=== PATIENT | female | born 1995 | race Caucasian/White ===

== ENCOUNTER → 2016-08-31 | Outpatient (CLI) | payer OTHER ==
[2016-08-31 20:09] LABS: BASO % 0.3 % (0.0-1.0); EOS # 0.1 K/mm3 (0.0-0.50); EOS % 0.9 % (0.0-3.0); LARGE UNSTAINED CELL # 0.1 K/mm3 (0.0-0.4); LARGE UNSTAINED CELL % 1.2 % (0.0-4.0); LYMPH % 23.3 % (24.0-44.0); MEAN CORPUSCULAR HEMOGLOBIN 27.1 pg (27.0-33.0); MEAN CORPUSCULAR HGB CONC 32.3 g/dl (32.0-36.5); MEAN CORPUSCULAR VOLUME 84.1 fl (80.0-96.0); MONO # 0.4 K/mm3 (0.0-0.8); MONO % 4.2 % (0.0-5.0); NEUTROPHILS # 5.9 K/mm3 (1.8-7.7); NEUTROPHILS % 70.2 % (36.0-66.0); PLATELET COUNT, AUTOMATED 288 k/mm3 (150-450); WHITE BLOOD COUNT 8.4 K/mm3 (4.0-10.0)
[2016-09-01 14:26] LABS: HIV SCRN NEGATIVE (NEGATIVE)
[2016-09-01 14:27] LABS: CONTROL LINE INT CTR LINE PRESENT; HIV SCRN1 NEGATIVE (NEGATIVE)
[2016-09-02 09:30] LABS: HBsAg Prenatal NEGATIVE (NEGATIVE)
== END ==
LOC: M WUC 15:40
PROVIDERS: ATTEND Specialist
DX: Z34.81 Encounter for supervision of other normal pregnancy, first trimester (principal)

== ENCOUNTER → 2016-11-17 | Outpatient (CLI) | payer OTHER ==
--- NOTE | 2016-11-18 04:48 | REP ---
Clinical: Anatomical evaluation. Comparison: None . Findings: Examination demonstrates a single live intrauterine in breech presentation. motion is identified by technologist. Placenta is noted anteriorly and grade zero without evidence for placenta previa or abruption. Amniotic fluid volume is normal. Cervix measures 4.0 cm in length and appears closed. No evidence for nuchal cord. Gestational age by LMP 18 weeks 5 days with CURT 04/15/2017 . Gestational age by current measurements 20 weeks 2 days with CURT 04/04/2017 . FHR equals 141 beats per minute. BPD 4.6 cm 19 weeks 6 days HC 17.7 cm 20 weeks 1 day AC 16.0 cm 21 weeks 1 day FL 3.2 cm 20 weeks 0 days HL 3.1 cm 20 weeks 3 days HC/AC ratio 1.10 Estimated weight 360 grams ( 54th percentile). Anatomical assessment demonstrates normal structures including cranium, choroid plexus, cavum, cerebellum/posterior fossa, facial features, lungs, four-chamber heart/ventricular outflow tracts, diaphragm, stomach, cord insertion/three-vessel cord, kidneys/bladder, spine, and extremities. Impression: Single live intrauterine in breech presentation demonstrating appropriate interval growth. Anatomical assessment is complete and normal. Cisterna magna measures 9.6 mm which is upper limits of normal. Signed by Tray Laboy MD 11/18/2016 04:39 A
== END ==
LOC: M RAD 16:06
PROVIDERS: ATTEND Obstetrics & Gynecology
DX: Z36 Encounter for antenatal screening of mother (principal)

== ENCOUNTER → 2017-01-19 | Outpatient (CLI) | payer OTHER ==
[~2017-01-19] MED LIST: IBUP-1114 PO; PREN1PAK2 PO; TUMS500C PO; TYLE325T5 PO
[2017-01-19 14:08] LABS: MEAN CORPUSCULAR HEMOGLOBIN 25.4 pg (27.0-33.0); MEAN CORPUSCULAR HGB CONC 31.4 g/dl (32.0-36.5); RED CELL DISTRIBUTION WIDTH 14.3 % (11.5-14.5); WHITE BLOOD COUNT 8.7 K/mm3 (4.0-10.0)
== END ==
LOC: M SMT 10:35
PROVIDERS: ATTEND Obstetrics & Gynecology
DX: Z34.82 Encounter for supervision of other normal pregnancy, second trimester (principal)

== ENCOUNTER → 2017-03-11 | Outpatient (CLI) | payer OTHER ==
--- NOTE | 2017-03-11 14:59 | REP ---
OBSTETRIC SONOGRAPHY: HISTORY: Supervision of growth study. FINDINGS: Scanning through the gravid uterus demonstrates a viable single intrauterine gestation in a cephalic lie. motion is observed and heart rate is recorder 153 beats per minute. An anterior grade 3 placenta is seen without evidence of previa. Amniotic fluid is subjectively normal. No extrauterine abnormalities observed. Closed cervical length could not be visualized due to head position. S/D ratio in the umbilical cord artery by Doppler is normal at 2.43. SABRINA is normal at 10.4 cm. The following anatomic structures are again identified and felt to be unremarkable: cranium, cavum, lungs, diaphragm, left-sided stomach, kidneys and bladder, spine. Biometry Chart: BPD 9.2 cm = 37 weeks 3 days HC 33.8 cm = 38 weeks 6 days AC 34.2 cm = 38 weeks 1 day FL 7.5 cm = 38 weeks 5 days HL 6.4 cm = 37 week 1 day HC/AC ratio normal 1.0 Cephalic index normal 0.8. Estimated weight 3411 grams, 7 pounds 8 ounces, 80th percentile for 36 weeks 4 days. IMPRESSION: Viable single intrauterine gestation at 38 weeks 0 days by today's composite criteria. Expected gestational age estimate based on prior sonography is 36 weeks 4 days. CURT by prior sonography April 04, 2017. 80th percentile weight estimate. Signed by Rk Brizuela MD 03/12/2017 09:45 A
== END ==
LOC: M RAD 08:16
PROVIDERS: ATTEND Advanced Practice Midwife
DX: Z36 Encounter for antenatal screening of mother (principal)

== ENCOUNTER → 2017-03-18 | Outpatient (REF) | payer OTHER | LOC: M LAB REF 17:18 | PROVIDERS: ATTEND Obstetrics & Gynecology | DX: Z34.83 Encounter for supervision of other normal pregnancy, third trimester (principal) ==

== ENCOUNTER → 2017-03-29 | Outpatient (CLI) | payer OTHER ==
[2017-03-29 10:56] LABS: ALT/SGPT 11 U/L (12-78); AST/SGOT 14 U/L (15-37); CREATININE FOR GFR 0.51 MG/DL (0.55-1.02); GLOMERULAR FILTRATION RATE > 60.0 (>60)
[2017-03-29 10:57] LABS: CREATININE, SERUM 0.5 MG/DL (0.6-1.0)
== END ==
LOC: M LAB 09:55
PROVIDERS: ATTEND Advanced Practice Midwife
DX: O16.3 Unspecified maternal hypertension, third trimester (principal)

== ENCOUNTER 2017-04-03 21:34 | Inpatient (IN) | payer OTHER ==
[~2017-04-03] VITALS: Ht 172.7 cm; Wt 89.4 kg
[2017-04-03 21:49] VITALS: BP 146/83
[2017-04-03 22:13] VITALS: BP 146/90
[2017-04-03] MEDS ORDERED: miSOPROStol 50 MCG 1/2 TAB (S0191) PO ONE (22:15)
[2017-04-03] MEDS ORDERED: PREN1PAK2 PO (22:17)
[2017-04-03] MEDS ORDERED: TUMS500C PO (22:17)
[2017-04-03] MEDS ORDERED: TYLE325T5 PO (22:17)
[2017-04-03 22:33] LABS: MEAN CORPUSCULAR HEMOGLOBIN 22.3 pg (27.0-33.0); MEAN CORPUSCULAR HGB CONC 31.6 g/dl (32.0-36.5); MEAN CORPUSCULAR VOLUME 70.5 fl (80.0-96.0); WHITE BLOOD COUNT 8.8 K/mm3 (4.0-10.0)
[2017-04-03 22:45] LABS: ALT/SGPT 12 U/L (12-78); AST/SGOT 16 U/L (15-37); BILIRUBIN,TOTAL 1.1 MG/DL (0.2-1.0); CREATININE FOR GFR 0.57 MG/DL (0.55-1.02); GLOMERULAR FILTRATION RATE > 60.0 (>60); URIC ACID 4.3 MG/DL (2.6-6.0)
--- NOTE | 2017-04-03 22:53 | HPE ---
DATE OF ADMISSION: 04/03/2017 HISTORY OF PRESENT ILLNESS: Theresa is a 21-year-old 5, para 1-0-3-1, at 39-1/7 weeks gestation with an estimated date of confinement (EDC) of 04/09/2017, based on last menstrual period and confirmed by first trimester ultrasound. She presents to labor and delivery today for induction of labor due to history of shoulder dystocia and fractured clavicle and noted gestational hypertension. She does deny regular contractions, vaginal bleeding and leakage of fluid. Her fetus has been active. care was initiated at a woman's perspective in the first trimester. 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 She had one elevated pressure in the office, did return 341 mg of protein in her 24-hour urine. All her pre-eclamptic labs were normal. Followup blood pressure was normotensive. Upon arrival today, her blood pressure is elevated so therefore her diagnosis of the gestational hypertension. OBSTETRICAL HISTORY: 1. Spontaneous miscarriage times three. 2. September 2014 at 39 weeks gestation, she had a spontaneous vaginal delivery for and 8 pound 11 ounces female, again shoulder dystocia with a fractured clavicle. OBSTETRICAL LABORATORIES: Blood type is O positive, antibody screen negative, rubella immune, VDRL was nonreactive. Urine culture no growth. Hepatitis B surface antigen negative, HIV negative. Hepatitis C antibody negative, gonorrhea and chlamydia negative. She did not have genetic serum screening labs performed. Gestational diabetic screening normal at 123, and her GBS was negative. PAST MEDICAL HISTORY: Asthma, childhood varicella. SURGERIES: None. FAMILY HISTORY: Noncontributory. SOCIAL HISTORY: The patient is single. Her family is at bedside and supportive. She is a nonsmoker. Denies alcohol and drug use. Denies history of sexually transmitted infections and denies history of abuse physical, sexual and emotional. ALLERGIES: No known drug allergies. CURRENT MEDICATIONS: Include vitamin OBJECTIVE: Temperature 98.1, pulse 93, respirations 18, blood pressure 146/93. She is alert and oriented times three. She is smiling and talkative. heart rate is 130 with moderate variability, positive accelerations observed. No decelerations observed. She is hasmukh approximately every 2-4 minutes, palpate mild. Abdomen is gravid, cephalic presentation. Estimated weight 8 pounds. Sterile vaginal exam 2 cm dilated, 80% effaced, minus two station, membranes intact, light bloody show. ASSESSMENT: Intrauterine at 39-1/7 weeks. heart rate category one. PLAN: Labs including pre-eclamptic profile. Out of bed ad eve. Clear liquid diet. Misoprostol 50 mcg by mouth for cervical ripening/labor induction. The patient does desire an epidural when she is uncomfortable with her labor. I did review risks and benefits including but not limited to failed induction, increased risk for section, intolerance to labor. The patient has had all her questions answered and desires to proceed with induction. I do anticipate labor and a spontaneous vaginal delivery.
[2017-04-03] MEDS ORDERED: FENTANYL 2MCG/ML ROPIVACAINE 0.2% IN 0.9% NACL 200ML IVBAG As Ordered ONE (23:28)
[2017-04-03] MEDS ORDERED: FENTANYL/ROPIVACAINE/NACL BAG 200 ML EPIDURAL SCH (23:45)
[2017-04-03] MEDS ORDERED: NALOXONE INJ 0.4 MG/1 ML VIAL (J2310) IV PRN (23:45)
[2017-04-03] MEDS ORDERED: EPIDURAL COMMENT XX SCH (23:45)
[2017-04-03] MEDS ORDERED: ePHEDrine SULFATE 25 MG/5 ML(5MG/ML) SYRINGE IV PRN (23:45)
[2017-04-03] MEDS ORDERED: EPIDURAL/PCA KEYS XX PRN (23:45)
[2017-04-03] MEDS ORDERED: diphenhydrAMINE INJ 50MG/ML VIAL (J1200) IV PRN (23:45)
[2017-04-03] MEDS ORDERED: ONDANSETRON 4MG/2ML VIAL (J2405) IV PRN (23:45)
[2017-04-03] MEDS ORDERED: LACTATED RINGER'S 1000 ML IV PRN (23:45)
[2017-04-03] MEDS ORDERED: REFRIGERATOR IV KEYS XX PRN (23:45)
[2017-04-03 23:46] VITALS: BP 132/81
[2017-04-03 23:54] VITALS: BP 152/91
[2017-04-03 23:55] VITALS: BP 145/88
[2017-04-03 23:58] VITALS: BP 139/83
[2017-04-04] VITALS (23 sets, daily range): BP systolic 112–144; BP diastolic 58–92
[2017-04-04] MEDS ORDERED: LR 1,000 ML IV SCH (01:25)
[2017-04-04] MEDS ORDERED: OXYTOCIN DRIP 30 UNITS in APPROPRIATE DILUENT 1 EA IV SCH ×2 (01:30→05:19)
[2017-04-04] MEDS ORDERED: OXYTOCIN 30 UNITS IN 0.9% NaCl 500ML IV BAG (J2590) As Ordered ONE (05:03)
[2017-04-04] MEDS ORDERED: ONDANSETRON 4MG/2ML VIAL (J2405) IV PRN (05:30)
[2017-04-04] MEDS ORDERED: DIBUCAINE 1% OINTMENT 30GM TOP PRN (05:30)
[2017-04-04] MEDS ORDERED: DOCUSATE SODIUM 100 MG CAP PO PRN (05:30)
[2017-04-04] MEDS ORDERED: MEASLES,MUMPS,RUBELLA VACCINE INJ (MMR-II) (90707) SC SCH (05:30)
[2017-04-04] MEDS ORDERED: ACETAMINOPHEN 500 MG TAB PO PRN (05:30)
[2017-04-04] MEDS ORDERED: RHOGAM 300 MCG (1500 IU) INJ (J2790) IM SCH (05:30)
[2017-04-04] MEDS: IBUPROFEN 800 MG TAB PO PRN ×4 (06:15→18:02)
[2017-04-04] MEDS: PRENATAL VITAMINS CHEWABLE TABLET PO SCH (09:00)
--- NOTE | 2017-04-04 13:20 | DN ---
DATE: 04/04/2017 Theresa is a 5, para 2-0-3-2 now who was admitted to labor and delivery for induction of labor. Intravenous (IV) Pitocin was started, labor ensued. She utilized an epidural. This provider was called to the labor room following the delivery of a live female. was lying on maternal chest upon entering the room. Reported delivery time 0500 hours. Cord was clamped times two and cut by the maternal grandmother. A spontaneous expulsion of an intact placenta with three-vessel cord by Schultze mechanism was at 0506 hours. Uterine hemostasis was achieved with IV Pitocin rapid infusion and uterine fundal massage. Estimated blood loss 300 mL. Perineum and vagina inspected, noted to be intact. The female weighed 9 pounds 15 ounces, 4500 grams, score of 8 and 9. Family is going to name their daughter Martina. At the close of delivery, lap counts and instrument counts were correct and verified. [facility]
[2017-04-05 05:35] VITALS: BP 127/87
[2017-04-05] MEDS ORDERED: INFLUENZA QUADRIVALENT PF VACCINE 0.5ML SYRINGE (90686) IM ONE (09:30)
[2017-04-05] MEDS: IBUPROFEN 800 MG TAB PO PRN (09:31)
[2017-04-05] MEDS: PRENATAL VITAMINS CHEWABLE TABLET PO SCH (09:31)
[2017-04-05] MEDS ORDERED: IBUP-1114 PO (09:49)
[2017-04-06] MEDS ORDERED: INFLUENZA QUADRIVALENT PF VACCINE 0.5ML SYRINGE (90686) IM ONE (09:00)
== END 2017-04-05 18:19 | disposition home or self-care (01) | DRG 560 ==
LOC: M LDI 21:34 → M OBS 04-04 11:43
PROVIDERS: ADMIT Advanced Practice Midwife; ATTEND Advanced Practice Midwife
PROC: 10E0XZZ Delivery of Products of Conception, External Approach (ICD-10-PCS; principal; 2017-04-04)
PROC: 3E033VJ Introduction of Other Hormone into Peripheral Vein, Percutaneous Approach (ICD-10-PCS; 2017-04-04)
DX: O13.4 Gestational [pregnancy-induced] hypertension without significant proteinuria, complicating childbirth (principal); Z37.0 Single live birth; Z3A.39 39 weeks gestation of pregnancy

== ENCOUNTER → 2017-09-06 | Outpatient (REF) | payer OTHER | LOC: M LAB REF 13:48 | DX: Z12.4 Encounter for screening for malignant neoplasm of cervix (principal) ==

== ENCOUNTER → 2018-12-23 | Outpatient (REF) | payer OTHER | LOC: M SFHCWAGY 14:47 | PROVIDERS: ATTEND Family Medicine | DX: Z12.4 Encounter for screening for malignant neoplasm of cervix (principal); Z11.3 Encounter for screening for infections with a predominantly sexual mode of transmission ==

== ENCOUNTER → 2018-12-23 | Outpatient (REF) | payer OTHER ==
[2018-12-23 21:21] LABS: CHLAMYDIA DNA AMPLIFICATION NEGATIVE (NEGATIVE); GC DNA AMPLIFICATION NEGATIVE (NEGATIVE)
== END ==
LOC: M SFHCWAGY 16:45
PROVIDERS: ATTEND Family Medicine
DX: Z11.3 Encounter for screening for infections with a predominantly sexual mode of transmission (principal)

== ENCOUNTER → 2019-04-14 | Outpatient (REF) | payer OTHER ==
[2019-04-14 17:06] LABS: CHLAMYDIA DNA AMPLIFICATION NEGATIVE (NEGATIVE); GC DNA AMPLIFICATION NEGATIVE (NEGATIVE)
== END ==
LOC: M SFHCWAGY 15:19
PROVIDERS: ATTEND Family Medicine
DX: Z11.3 Encounter for screening for infections with a predominantly sexual mode of transmission (principal)

== ENCOUNTER → 2023-01-27 | Outpatient (REF) | payer OTHER | LOC: M SFHCWAGY 12:57 | PROVIDERS: ATTEND Nurse Practitioner Family | DX: Z12.4 Encounter for screening for malignant neoplasm of cervix (principal) ==

== ENCOUNTER → 2023-02-11 | Outpatient (REF) | payer OTHER | LOC: M SFHCWAGY 17:40 | PROVIDERS: ATTEND Nurse Practitioner Family | DX: R87.619 Unspecified abnormal cytological findings in specimens from cervix uteri (principal) ==